=== PATIENT | male | born 1950 | race Caucasian/White ===

== ENCOUNTER 2021-04-26 08:00 | Outpatient (CLI) | payer BC | END 2021-04-26 23:59 | LOC: LAB.N 08:00 | PROVIDERS: ATTEND Nurse Practitioner | DX: R63.0 Anorexia (principal); Z20.822 Contact with and (suspected) exposure to COVID-19 ==

== ENCOUNTER 2024-11-24 13:47 | Inpatient (IN) ==
--- NOTE | 2024-11-24 14:16 | ED Physician Documentation ---
PD HPI CHEST PAIN Stated complaint Stated Complaint: SOA, COUGHING Chief complaint Chief Complaint: Resp History obtained from History obtained from: Patient Additional information Additional information: This is a very nice 74-year-old gentleman who presents with several months of shortness of breath and worsening over the last several nights. He is also noted 2 to 3 weeks of right lower leg swelling. He notes that his symptoms were possibly related to his COPD. Patient has a longstanding history of tobacco use, has been told he has COPD in the past but is not on any sort of inhaler. He has noted a productive cough recently, no fever or other URI symptoms. He does not believe he has been wheezing. He has noted increasing shortness of breath however particularly at nighttime, states he has not been able to sleep because he cannot lay flat due to significant shortness of breath. States repeatedly that he felt like he might last night if he fell asleep. He does not have any chest pain. He states he is generally quite active, works out in the yard, states he always is aching because he is doing fairly heavy physical labor around his property. Noted bilateral lower extremity swelling for the last several weeks but right leg has been substantially more swollen than left. He denies any pain to the right leg, has not noticed any erythema. No history of cellulitis. He apparently called or spoke with his PCP and they told him to come into the ER.. [place] Coma Scale Assess Eye opening: Spontaneous Verbal response: Oriented Motor response: Obeys Commands Total score: 15 Review of Systems Status of ROS: 10 or more systems reviewed and unremarkable except as noted in history and below Constitutional Denies: Fatigue, Fever, Chills, Malaise or Weakness Cardiovascular Reports: edema, swelling of feet/ankles, shortness of breath with exertion, shortness of breath when lying down and Decreased exercise tolerance; Denies: chest pain, palpitations, Syncope, lightheadedness, leg pain with exertion or bluish discoloration of hands/feet Respiratory Reports: Shortness of breath, Cough, Sputum production and SOB with exertion; Denies: Change in phlegm color, Wheezing, Pain on inspiration, Coughing up blood, Orthopnea or SOB at rest Gastrointestinal Denies: Abdominal pain, Abdominal distention, Nausea, Vomiting, Diarrhea or Constipation Integumentary/Breast Denies: Rash, Itching, Dryness, Redness, Skin pain or Skin tenderness Endocrine Denies: Fatigue Allergic/Immunologic Denies: Wheezing Meds/Allgy Allergies Allergies Allergy/AdvReac Type Severity Reaction Status Date / Time No Known Drug Allergies Allergy Verified 11/24/24 15:01 PFSH Active Problems All Active Problems (Updated 11/24/24 @ 16:48 by APURVA Rico) Atrial fibrillation (Acute) Chronic obstructive pulmonary disease with (acute) exacerbation (Acute) Acute CHF (Acute) Social History Social History (Updated 11/24/24 @ 20:46 by Juanjo Velasco DNP) Smoking Status: Current every day smoker Relationship: Do you feel safe in your home environment?: Yes Suffered physical, verbal, emotional, or financial abuse?: No Exam Exam Vital Signs: Vital Signs x48h Temp Pulse Resp BP Pulse Ox O2 Flow Rate 11/24/24 18:09 110 H 22 100/65 93 11/24/24 16:57 117 H 24 122/79 91 L 11/24/24 16:53 120 H 22 117/94 H 90 L 11/24/24 16:40 116 H 20 113/90 95 11/24/24 16:38 122 H 20 114/79 8 11/24/24 16:32 122 H 22 11/24/24 16:31 120 H 20 129/77 94 8 11/24/24 15:31 127 H 24 106/76 92 11/24/24 13:52 36.8 C 114 H 22 95/60 95 Constitutional normal general appearance, no apparent distress, no limitations and alert HENMT normocephalic, head/scalp atraumatic and oral mucous membranes normal Neck/C-Spine visual inspection normal and supple Chest inspection of chest normal and palpation of chest normal Respiratory Mildly tachypneic with talking in full sentences. Scattered expiratory wheezes, no crackles. No accessory muscle use. Cardiovascular heart rate abnormal, rhythm abnormal, no gallop, no murmur, no JVD and edema noted Irregular rhythm, tachycardic. Bilateral lower extremity edema right leg but substantially worse than left. Right leg 3+, left leg 1+ ankle edema. Wrist cap refill with palpable pedal pulses bilaterally, normal thermic Gastrointestinal abdomen normal to inspection, abdomen soft to palpation, nontender to palpation, nondistended and normoactive bowel sounds Extremities Right lower leg 3+ edema, no calf pain or fullness, no palpable cords, no cellulitis or bony injury. Neurology no sensory deficits noted, speech normal and GCS 15 Skin skin color normal, no rash, no lesions and no ecchymosis noted Results Vitals Vitals: Vital Signs - 24 hr 11/24/24 13:52 11/24/24 15:31 11/24/24 16:31 Temperature 36.8 C Temperature Source Oral Pulse Rate 114 H 127 H 120 H Respiratory Rate 22 24 20 Blood Pressure 95/60 106/76 129/77 O2 Saturation 95 92 94 O2 Source Room air Room air T-piece If not protocol: Oxygen Flow, liters/minute 8 Pain Intensity 0 11/24/24 16:32 11/24/24 16:38 11/24/24 16:40 Temperature Temperature Source Pulse Rate 122 H 122 H 116 H Respiratory Rate 22 20 20 Blood Pressure 114/79 113/90 O2 Saturation 95 O2 Source Room air T-piece Room air If not protocol: Oxygen Flow, liters/minute 8 Pain Intensity 11/24/24 16:53 11/24/24 16:57 11/24/24 18:09 Temperature Temperature Source Pulse Rate 120 H 117 H 110 H Respiratory Rate 22 24 22 Blood Pressure 117/94 H 122/79 100/65 O2 Saturation 90 L 91 L 93 O2 Source Room air Room air Room air If not protocol: Oxygen Flow, liters/minute Pain Intensity Oxygen O2 Source Room air EKG (time done) 1420: EKG releavant findings:: EKG personally interpreted by author of this note. Relevant findings are: Rate: Rate (enter#) (111) and Tachy Rhythm: Sinus tachycardia Intervals: Normal NC Ischemia: Non specific changes Computer interpretation: Agree with computer Labs Labs: Laboratory Tests 11/24/24 11/24/24 14:21 16:21 WBC 9.3 RBC 4.57 L Hgb 14.9 Hct 44.3 MCV 96.9 H MCH 32.6 H MCHC 33.6 RDW 13.2 Plt Count 146 MPV 11.5 H Neut # (Auto) 7.5 H Lymph # (Auto) 0.6 L [place] # (Auto) 1.1 H Eos # (Auto) 0.0 Baso # (Auto) 0.0 Absolute Nucleated RBC 0.00 Nucleated RBC % 0.0 PT 12.9 H INR 1.1 APTT 27.1 D-Dimer 442.5 H Sodium 137 Potassium 2.8 L Chloride 97 L Carbon Dioxide 32 Anion Gap 8.0 BUN 22 H Creatinine 1.1 Estimated GFR (MDRD) 65 L Glucose 116 H Calcium 8.8 Magnesium 1.7 Total Bilirubin 0.9 AST 43 H ALT 56 Alkaline Phosphatase 44 Troponin I High Sens 34.5 H* 35.0 H* B-Natriuretic Peptide 1208 H Total Protein 5.9 L Albumin 3.8 Globulin 2.1 Albumin/Globulin Ratio 1.8 Lipase 116 H PD Medical Decision Making ED course Complexity details: reviewed results, re-evaluated patient, considered differential and d/w patient ED course: This is a very nice 74-year-old male who presents with increasing shortness of breath and lower extremity edema for the last several weeks as described in HPI. He is a stable appearing here and physical exam so tachycardic, he appears nontoxic, oxygenating well on room air. There is concern for possible CHF, COPD exacerbation, ACS, pulmonary embolus, DVT, among other differentials considered. We obtained labs which are notable for a stable CBC no leukocytosis, elevated D-dimer at 442, chemistry notable for potassium of 2.8, chlorides 97, BUN 22 creatinine 1.1, high-sensitivity troponin is 34.5, repeat troponin 35, BNP elevated at 1208, magnesium 1.7. EKG shows sinus tachycardia with VPCs, no acute ST changes. CTA negative for PE, venous duplex of the right lower leg negative for DVT but concern for possible arterial disease. The patient was given diltiazem 10 mg IV for pain tachycardia in and out of atrial fibrillation on the monitor. He was rate improved into the low 100s, blood pressure somewhat soft but stable. Patient was given a DuoNeb as well as 40 mg of IV Lasix. I discussed with the ED attending and hospitalization recommended given patient's persistent tachycardia, need for diuresis, hypokalemia, and likely new atrial fibrillation though in en route. I have therefore spoken with the hospitalist CULLET CRUSHER who very kindly agrees to admit this patient. Discharge Plan Discharge Patient Disposition: [facility] DC/Xfer Condition: Good Clinical Impression: Chronic obstructive pulmonary disease with (acute) exacerbation Acute CHF Qualifiers: Heart failure type: unspecified Qualified Code(s): I50.9 - Heart failure, unspecified Atrial fibrillation Qualifiers: Atrial fibrillation type: unspecified Qualified Code(s): I48.91 - Unspecified atrial fibrillation Interventions: ED Admission Assessment Last Done: 11/24/24 19:11
[2024-11-24] MEDS ORDERED: iohexoL-300 100 ML VIAL ONE (14:21)
[2024-11-24 14:31] LABS: BASOPHILS % (AUTO) 0.3 %; HCT - HEMATOCRIT 44.3 % (42.0-52.0); HGB - HEMOGLOBIN 14.9 g/dL (14.0-18.0); LYMPHOCYTES # (AUTO) 0.6 10^3/uL (1.5-3.5); LYMPHOCYTES % (AUTO) 6.4 %; MEAN CORPUSCULAR HEMOGLOBIN 32.6 pg (27.0-31.0); MEAN CORPUSCULAR HGB CONC 33.6 g/dL (32.0-36.0); MEAN CORPUSCULAR VOLUME 96.9 fL (80.0-94.0); MEAN PLATELET VOLUME 11.5 fL (7.4-11.4); MONOCYTES # (AUTO) 1.1 10^3/uL (0.0-1.0); MONOCYTES % (AUTO) 12.2 %; NEUTROPHILS # (AUTO) 7.5 10^3/uL (1.5-6.6); NEUTROPHILS % (AUTO) 80.8 %; PLT - PLATELET COUNT 146 10^3/uL (130-450); RED BLOOD COUNT 4.57 10^6/uL (4.70-6.10); RED CELL DISTRIBUTION WIDTH 13.2 % (12.0-15.0); WHITE BLOOD COUNT 9.3 x10^3/uL (4.8-10.8)
[2024-11-24 14:44] LABS: INR 1.1 (0.8-1.2); PT - PROTHROMBIN TIME 12.9 secs (9.9-12.6)
[2024-11-24 14:47] LABS: ALBUMIN 3.8 g/dL (3.2-5.5); ALBUMIN/GLOBULIN RATIO 1.8 (1.0-2.2); BILIRUBIN,TOTAL 0.9 mg/dL (0.2-1.0); CALCIUM 8.8 mg/dL (8.5-10.3); CREATININE 1.1 mg/dL (0.6-1.3); POTASSIUM 2.8 mmol/L (3.5-4.5); TOTAL PROTEIN 5.9 g/dL (6.4-8.9)
[2024-11-24 14:51] LABS: PARTIAL THROMBOPLASTIN TIME 27.1 secs (24.9-33.3)
[2024-11-24 14:58] LABS: D-DIMER 442.5 ng/mL (200.0-255.0)
[2024-11-24] MEDS: POTASSIUM CHLOR 10 MEQ/100 ML 10 MEQ/100 ML BAG IV STA (15:10)
[2024-11-24] MEDS: POTASSIUM CHLORIDE 20 MEQ/15 ML UDC PO STA (15:10)
[2024-11-24] MEDS: SODIUM CHLORIDE 0.9% 500 ML IV PRN (15:17)
[2024-11-24] MEDS: iohexoL-300 100 ML VIAL IVP ONE (16:20)
--- NOTE | 2024-11-24 16:20 | Ultrasound Report ---
PROCEDURE: US Venous Duplex RT INDICATIONS: unilateral swelling, concern for DVT TECHNIQUE: Real-time imaging, as well as color and pulse Doppler interrogation, were performed of the lower extremity deep veins from the inguinal ligament to the popliteal fossa. Attempted visualization of the calf veins was performed. COMPARISON: None. FINDINGS: The deep veins are normally compressible, and free of intraluminal thrombus. Color and pulse Doppler demonstrate normal phasic intraluminal flow. There is normal augmentation response to distal compression maneuver. Study is limited by the patient's inability to remain still for this study. Calcified shadowing arterial plaque can be seen. Monophasic flow with decreased peak systolic velocity of 29.5 cm/s can be seen within the superficial femoral artery. IMPRESSION: No deep venous thrombosis of the visualized lower extremity. Incidental note is made of adjacent arterial disease. Please consider a follow- up arterial ultrasound for further evaluation. Note: Concordant preliminary findings given by the law firm receptionist upon the completion of the examination to Brunilda all. Reviewed by: Jonathon Nascimento MD on 11/24/2024 3:19 PM MIKY Approved by: Jonathon Nascimento MD on 11/24/2024 3:19 PM MIKY Station ID: [id number]
[2024-11-24] MEDS: FUROSEMIDE 40 MG/4 ML VIAL IVP STA (16:25)
--- NOTE | 2024-11-24 16:27 | CT Report ---
PROCEDURE: CT Angio Chest INDICATIONS: concern for PE, tachy/SOB, right leg swelling. CONTRAST: Omni 300 80ml TECHNIQUE: After the administration of intravenous contrast, 2 mm axial images were acquired from the pulmonary apices to the posterior costophrenic angles during the arterial phase. In addition, 1 mm lung kernel and 5 mm soft tissue kernel reconstructions were performed. 3-dimensional coronal oblique maximum intensity projection (MIP) reformats, 8 mm axial MIP, and 5 mm coronal and sagittal MPR reformats were then performed through the thorax. For radiation dose reduction, the following was used: automated exposure control, adjustment of mA and/or kV according to patient size. COMPARISON: None. FINDINGS: Image quality: Excellent. Large vessels: No filling defects within the opacified pulmonary arteries, accounting for motion and contrast timing. No evidence of acute aortic syndrome or aortic aneurysm. Lungs and pleura: There is a small right-sided pleural effusion, with overlying apparent atelectasis. No consolidation. No pneumothorax. No suspicious pulmonary nodules which require follow up. Mediastinum: Moderate to prominent coronary calcification is seen. Heart size is normal. No pericardial effusion. No large vessel abnormality. Atherosclerotic calcification is seen. No mediastinal adenopathy by size criteria. Chest wall and lower neck: Thyroid is unremarkable. No axillary or supraclavicular adenopathy by size. Bones: No aggressive osseous abnormality. Upper Abdomen: Unremarkable. IMPRESSION: No pulmonary embolus. There is a small right-sided pleural effusion, with overlying atelectasis. Additional findings: Moderate prominent coronary consultation Reviewed by: Jonathon Nascimento MD on 11/24/2024 3:26 PM AKDT Approved by: Jonathon Nascimento MD on 11/24/2024 3:26 PM AKDT Station ID: [id number]
[2024-11-24] MEDS: IPRATROPIUM/ALBUTEROL 3 ML NEB INH STA (16:32)
[2024-11-24] MEDS: diltiaZEM INJ 5 MG/ML VIAL IVP STA (16:34)
[2024-11-24] MEDS ORDERED: METOPROLOL 5 MG/5 ML VIAL IVP PRN (17:46)
--- NOTE | 2024-11-24 18:40 | HISTORY & PHYSICAL EXAMINATION ---
Chief Complaint Chief Complaint Chief Complaint: Dyspnea History of Present Illness Admitted From Admitted From:: Home History Obtained From History obtained from: Patient interview Exam Limitations: None History of Present Illness HPI Comment/Other: 74-year-old male PMH tobacco abuse, COPD with family history of CHF presented to the ED with dyspnea that has been worsening over the past 2 months, acutely worsening over the past few days. Denies fever, chills, chest pain, bowel/bladder abnormality. Reports swelling in his legs. Reports wheezing In the ER, CTA chest was performed which was negative for PE but did show small right-sided pleural effusion and moderate to prominent coronary calcification. Venous ultrasound was performed which was negative for clot. Troponin was 34.5 on initial presentation, and repeat was 35. He was given Solu-Medrol, 40 mg IV Lasix, and hospitalist was consulted for observation for acute heart failure Meds/Allgy Allergies Allergies Allergy/AdvReac Type Severity Reaction Status Date / Time No Known Drug Allergies Allergy Verified 11/24/24 15:01 [facility] Active Problems All Active Problems (Updated 11/24/24 @ 16:48 by Ibeth Worley VICE CHAIR) Atrial fibrillation (Acute) Chronic obstructive pulmonary disease with (acute) exacerbation (Acute) Acute CHF (Acute) Social History Social History Smoking Status: Current every day smoker Relationship: Do you feel safe in your home environment?: Yes Suffered physical, verbal, emotional, or financial abuse?: No Review of Systems Status of ROS: 10 or more systems reviewed and unremarkable except as noted in history and below Constitutional Denies: Fever or Chills Cardiovascular Reports: shortness of breath with exertion; Denies: Irregular heart rate, chest pain or palpitations Respiratory Reports: Shortness of breath, Cough and Wheezing Gastrointestinal Denies: Abdominal pain or Abdominal distention Musculoskeletal Reports: Back pain (Chronic) Allergic/Immunologic Reports: Wheezing Exam Exam Vital Signs: Vital Signs x48h Temp Pulse Pulse Resp BP BP Pulse Ox 11/24/24 20:21 119 H 86/55 L 11/24/24 20:05 36.5 C 115 H 24 88/59 L 94 11/24/24 19:10 115 H 24 104/62 91 L 11/24/24 18:48 128 H 24 96/67 90 L 11/24/24 18:38 129 H 22 103/77 90 L 11/24/24 18:09 110 H 22 100/65 93 05/11/25 16:57 117 H 24 122/79 91 L 11/24/24 16:53 120 H 22 117/94 H 90 L 11/24/24 16:40 116 H 20 113/90 95 11/24/24 16:38 122 H 20 114/79 11/24/24 16:32 122 H 22 11/24/24 16:31 120 H 20 129/77 94 11/24/24 15:31 127 H 24 106/76 92 11/24/24 13:52 36.8 C 114 H 22 95/60 95 O2 Flow Rate 11/24/24 20:21 11/24/24 20:05 11/24/24 19:10 11/24/24 18:48 11/24/24 18:38 11/24/24 18:09 11/24/24 16:57 11/24/24 16:53 11/24/24 16:40 11/24/24 16:38 8 11/24/24 16:32 11/24/24 16:31 8 11/24/24 15:31 11/24/24 13:52 Constitutional normal general appearance and no apparent distress HENMT normocephalic and head/scalp atraumatic Eyes PERRL Neck/C-Spine visual inspection normal Lymph no lymphadenopathy noted Chest inspection of chest normal Respiratory breath sounds equal bilaterally Coarse breath sounds Cardiovascular heart rate abnormal (tachycardic), peripheral pulses 2+ throughout and edema noted Gastrointestinal abdomen normal to inspection and abdomen soft to palpation Extremities BLE edema Neurology GCS 15 Psychiatry oriented x3 Skin skin color normal Conclusion/Plan Problem List (1) Acute CHF: Plan: 91% on room air, desaturates with activity He reports his father of heart failure Ordered echocardiogram 40 mg Lasix given by ER provider I&O, telemetry, daily weight 40 mg IV Lasix daily Albumin x 1 to support diuresis Qualifiers: Heart failure type: unspecified Qualified Code(s): I50.9 - Heart failure, unspecified (2) Chronic obstructive pulmonary disease with (acute) exacerbation: Plan: Contributing to his overall shortness of breath Active smoker, no plans to stop Received Solu-Medrol 125 mg in the ER Prednisone 40 mg p.o. daily Bronchodilator protocol (3) Atrial fibrillation: Plan: 10 mg diltiazem ordered by ER provider Metoprolol 25 mg p.o. twice daily Echo as above Telemetry as above Replete electrolytes. ER gave 50 mEq potassium. I have ordered another 40 mEq potassium and 2 g magnesium Qualifiers: Atrial fibrillation type: unspecified Qualified Code(s): I48.91 - Unspecified atrial fibrillation Plan Placed in observation DNR, intubation okay His daughter is his surrogate decision-maker Lab Results 11/24/24 14:21 11/24/24 14:21 Core Measures Anticipated LOS I expect patient to be DC'd or transferred within 96 hours.: Yes DVT/VTE - Prophylaxis VTE/DVT Prophylaxis med ordered at admit?: Yes
[2024-11-24] MEDS ORDERED: ACETAMINOPHEN 325 MG TABLET PO PRN (19:37)
[2024-11-24] MEDS ORDERED: ONDANSETRON 4 MG/2 ML VIAL IVP PRN (19:37)
[2024-11-24] MEDS ORDERED: ONDANSETRON ODT 4 MG TABLET TL PRN (19:37)
[2024-11-24] MEDS: METOPROLOL TARTRATE 25 MG TABLET PO SCH (20:21)
[2024-11-24] MEDS: ALBUMIN 25% 12.5 GM/50 ML VIAL IV STA (20:56)
[2024-11-24] MEDS: POTASSIUM CHLORIDE 20 MEQ TABLET PO ONE (21:05)
[2024-11-24] MEDS: MAGNESIUM SULFATE 2 GRAM 2 GM/50 ML BAG IV ONE (21:10)
[2024-11-25] MEDS: SODIUM CHLORIDE FLUSH 0.9% 10 ML SYRINGE IVP SCH (02:16)
[2024-11-25] MEDS ORDERED: MIDODRINE 2.5 MG TABLET PO PRN (03:56)
[2024-11-25] MEDS: AMIODARONE 360 MG/200 ML 200 ML IV SCH (04:34)
[2024-11-25] MEDS: METOPROLOL 5 MG/5 ML VIAL IVP PRN (04:54)
[2024-11-25 05:35] LABS: BASOPHILS % (AUTO) 0.3 %; HCT - HEMATOCRIT 42.5 % (42.0-52.0); HGB - HEMOGLOBIN 14.3 g/dL (14.0-18.0); LYMPHOCYTES # (AUTO) 0.8 10^3/uL (1.5-3.5); LYMPHOCYTES % (AUTO) 8.5 %; MEAN CORPUSCULAR HEMOGLOBIN 32.4 pg (27.0-31.0); MEAN CORPUSCULAR HGB CONC 33.6 g/dL (32.0-36.0); MEAN CORPUSCULAR VOLUME 96.4 fL (80.0-94.0); MEAN PLATELET VOLUME 11.4 fL (7.4-11.4); MONOCYTES # (AUTO) 1.1 10^3/uL (0.0-1.0); MONOCYTES % (AUTO) 11.2 %; NEUTROPHILS # (AUTO) 7.7 10^3/uL (1.5-6.6); NEUTROPHILS % (AUTO) 79.5 %; PLT - PLATELET COUNT 133 10^3/uL (130-450); RED BLOOD COUNT 4.41 10^6/uL (4.70-6.10); RED CELL DISTRIBUTION WIDTH 13.2 % (12.0-15.0); WHITE BLOOD COUNT 9.7 x10^3/uL (4.8-10.8)
[2024-11-25 05:46] LABS: CALCIUM 8.6 mg/dL (8.5-10.3); POTASSIUM 3.3 mmol/L (3.5-4.5)
[2024-11-25] MEDS: ENOXAPARIN 40 MG/0.4 ML SYRINGE SUBQ SCH (08:38)
[2024-11-25] MEDS: FUROSEMIDE 40 MG/4 ML VIAL IVP SCH (08:38)
--- NOTE | 2024-11-25 11:15 | PHARMACY PROGRESS NOTE ---
Best Possible Medication History Admit Date and Time: 11/24/24 1830 Home Medications Medication Instructions Recorded Confirmed Type atorvastatin 20 mg tablet 10 mg PO DAILY 11/25/2411/14 History cholecalciferol (vitamin D3) 25 5,000 unit PO UD 11/2511/25/24 History mcg (1,000 unit) tablet (Vitamin D3) cyanocobalamin (vitamin B-12) 500 500 mcg PO DAILY 07/1011/25/24 History mcg tablet hydrochlorothiazide 50 mg tablet 25 mg PO DAILY 11/25/24 History Processed by: Pharmacy Medications reviewed in ED?: No Medication History completed: Yes Patient Interview: Completed Secondary Source(s): Insurance records [facility] Statement: Per [facility] interview with patient and review of [employer] insurance records. As the person ultimately responsible for medication therapy, providers are able to order a medication from an existing home medication list in [facility] via the "Reconcile Routine" prior to Confirmation of that medication by sales support representative. Such practice is discouraged except when the physician, in their clinical judgment, deems that a medical need exists for a medication without regard to previous use.
--- NOTE | 2024-11-25 14:30 | PROVIDER PROGRESS NOTE ---
Subjective Prog Note Date Prog Note Date: 11/25/24 Subjective Pt reports feeling: Improved Current Medications Current Medications Current Medications: Current Medications Generic Name Dose Route Start Last Admin Trade Name Freq PRN Reason Stop Dose Admin Acetaminophen 650 mg 11/24/24 19:37 Acetaminophen 325 Mg Tablet PO Q4HR PRN Pain 1 to 4, or Fever Enoxaparin Sodium 40 mg 11/25/24 09:00 11/25/24 08:38 Enoxaparin 40 Mg/0.4 Ml Syringe SUBQ 40 mg DAILY LEATHA Administration Furosemide 40 mg 11/25/24 09:00 11/25/24 08:38 Furosemide 40 Mg/4 Ml Vial IVP 40 mg DAILY LEATHA Administration Sodium Chloride 500 mls @ 10 mls/hr 11/24/24 15:02 11/24/24 20:41 Normal Saline 0.9% IV 0 mls/hr Q24H PRN Infusion TKO RATE Metoprolol Tartrate 5 mg 11/24/24 17:46 Metoprolol 5 Mg/5 Ml Vial IVP Q5M PRN Tachycardia Metoprolol Tartrate 25 mg 11/24/24 19:37 11/25/24 08:39 Metoprolol Tartrate 25 Mg Tablet PO 25 mg BID LEATHA Administration Metoprolol Tartrate 5 mg 11/25/24 04:12 11/25/24 04:54 Metoprolol 5 Mg/5 Ml Vial IVP 5 mg Q6H PRN Administration Tachycardia Midodrine 5 mg 11/25/24 03:56 Midodrine 2.5 Mg Tablet PO 11/26/24 03:55 ONCE PRN SBP<90 Multivitamins/Minerals 1 tab 11/26/24 08:00 Multivitamin W/Minerals Tablet PO DAILYWM LEATHA Ondansetron HCl 4 mg 11/24/24 19:37 Ondansetron Odt 4 Mg Tablet TL Q6HR PRN Nausea / Vomiting Ondansetron HCl 4 mg 11/24/24 19:37 Ondansetron 4 Mg/2 Ml Vial IVP Q6HR PRN Nausea / Vomiting Sodium Chloride 10 ml 11/24/24 19:37 Sodium Chloride Flush 0.9% 10 Ml Syringe IVP PRN PRN NEEDED PER PROVIDER ORDERS Sodium Chloride 10 ml 11/25/24 01:00 11/25/24 08:39 Sodium Chloride Flush 0.9% 10 Ml Syringe IVP 10 ml 0100,0900,1700 LEATHA Administration Objective Vital Signs/Intake & Output Reviewed Vital Signs: Yes Vital Signs: Vital Signs x48h Temp Pulse Pulse Resp BP BP Pulse Ox 11/25/24 12:11 36.4 C L 89 20 101/67 96 11/25/24 08:39 117 H 99/62 11/25/24 08:23 36.3 C L 75 20 99/65 90 L Intake & Output: Intake & Output 11/22/24 11/23/24 11/24/24 11/25/24 23:59 23:59 23:59 23:59 Intake Total 254 / 254 380 / 380 Output Total 500 / 500 580 / 580 Balance -246 / -246 -200 / -200 Weight (kg) 75 kg Objective General Appearance: positive No acute distress and Alert Eyes Bilateral: positive Normal inspection ENT: positive ENT inspection nml Neck: positive Nml inspection Respiratory: positive Chest non-tender Cardiovascular: positive Irregularly irregular Abdomen: positive Non-tender Skin: positive Color nml Extremities: positive Non-tender and Pedal edema Neurologic/Psychiatric: positive Oriented x3 Lab Results 11/25/24 05:14 11/25/24 05:14 Other Labs: Lab Results x24hrs 11/25/24 11/24/24 11/24/24 Range/Units 05:14 16:21 14:21 WBC 9.7 9.3 (4.8-10.8) x10^3/uL RBC 4.41 L 4.57 L (4.70-6.10) 10^6/uL Hgb 14.3 14.9 (14.0-18.0) g/dL Hct 42.5 44.3 (42.0-52.0) % MCV 96.4 H 96.9 H (80.0-94.0) fL MCH 32.4 H 32.6 H (27.0-31.0) pg MCHC 33.6 33.6 (32.0-36.0) g/dL RDW 13.2 13.2 (12.0-15.0) % Plt Count 133 146 (130-450) 10^3/uL MPV 11.4 11.5 H (7.4-11.4) fL Neut # (Auto) 7.7 H 7.5 H (1.5-6.6) 10^3/uL Lymph # (Auto) 0.8 L 0.6 L (1.5-3.5) 10^3/uL [place] # (Auto) 1.1 H 1.1 H (0.0-1.0) 10^3/uL Eos # (Auto) 0.0 0.0 (0.0-0.7) 10^3/uL Baso # (Auto) 0.0 0.0 (0.0-0.1) 10^3/uL Absolute Nucleated RBC 0.00 0.00 x10^3/uL Nucleated RBC % 0.0 0.0 /100WBC PT 12.9 H (9.9-12.6) secs INR 1.1 (0.8-1.2) APTT 27.1 (24.9-33.3) secs D-Dimer 442.5 H (200.0-255.0) ng/mL Sodium 137 137 (135-145) mmol/L Potassium 3.3 L 2.8 L (3.5-4.5) mmol/L Chloride 99 L 97 L (101-111) mmol/L Carbon Dioxide 29 32 (21-32) mmol/L Anion Gap 9.0 8.0 (6-13) BUN 23 H 22 H (6-20) mg/dL Creatinine 1.0 1.1 (0.6-1.3) mg/dL Estimated GFR (MDRD) 73 L 65 L (>89) Glucose 122 H 116 H (74-104) mg/dL Calcium 8.6 8.8 (8.5-10.3) mg/dL Magnesium 1.7 (1.7-2.3) mg/dL Total Bilirubin 0.9 (0.2-1.0) mg/dL AST 43 H (10-42) IU/L ALT 56 (10-60) IU/L Alkaline Phosphatase 44 (42-121) IU/L Troponin I High Sens 35.0 H* 34.5 H* (2.3-19.7) ng/L B-Natriuretic Peptide 1208 H (5-100) pg/mL Total Protein 5.9 L (6.4-8.9) g/dL Albumin 3.8 (3.2-5.5) g/dL Globulin 2.1 (2.1-4.2) g/dL Albumin/Globulin Ratio 1.8 (1.0-2.2) Lipase 116 H (11-82) U/L Assessment/Plan Problem List (1) Acute CHF: Impression: Stable on room air Family history of heart failure Echocardiogram ordered I am continuing 40 mg IV Lasix daily, and supporting electrolytes TEJAS, telemetry, daily weights Qualifiers: Heart failure type: unspecified Qualified Code(s): I50.9 - Heart failure, unspecified (2) Chronic obstructive pulmonary disease with (acute) exacerbation: Impression: Presumptive COPD, could be contributing Continue prednisone 40 mg p.o. daily (3) Atrial fibrillation: Impression: Echo as above I am continuing his metoprolol 25 mg p.o. twice daily His heart rate is better controlled today. It is 89 at noon Qualifiers: Atrial fibrillation type: unspecified Qualified Code(s): I48.91 - Unspecified atrial fibrillation
[2024-11-25] MEDS: predniSONE 20 MG TABLET PO SCH (15:03)
[2024-11-25] MEDS: APIXABAN 5 MG TABLET PO SCH (20:38)
[2024-11-25] MEDS: MELATONIN 3 MG TABLET PO SCH (20:55)
[2024-11-26] MEDS: QUEtiapine 25 MG TABLET PO ONE (01:06)
[2024-11-26 01:41] LABS: BILIRUBIN,URINE SMALL (NEGATIVE); GLUCOSE, URINE (UA) NEGATIVE (NEGATIVE); KETONES,URINE (UA) NEGATIVE (NEGATIVE); LEUKOCYTE ESTERASE, URINE NEGATIVE (NEGATIVE); NITRITE,URINE NEGATIVE (NEGATIVE); OCCULT BLOOD,URINE SMALL (NEGATIVE); PH,URINE 5.5 PH (5.0-7.5); PROTEIN,URINE 100 mg/dL (NEGATIVE); UROBILINOGEN,URINE 1 (NORMAL) E.U./dL (NORMAL)
[2024-11-26 01:43] LABS: CLARITY,URINE HAZY (CLEAR)
[2024-11-26 01:58] LABS: AMORPHOUS SEDIMENT,UR Few /LPF; BACTERIA,URINE Few /HPF (None Seen); SQUAMOUS EPITHELIAL CELL,UR FEW Squamous (<= Few); WBC,URINE 0-3 /HPF (0-3)
[2024-11-26 01:59] LABS: CASTS, URINE 11-25 Hyaline Casts /LPF
[2024-11-26 05:48] LABS: BASOPHILS % (AUTO) 0.1 %; HCT - HEMATOCRIT 45.5 % (42.0-52.0); HGB - HEMOGLOBIN 15.2 g/dL (14.0-18.0); LYMPHOCYTES # (AUTO) 0.9 10^3/uL (1.5-3.5); LYMPHOCYTES % (AUTO) 12.2 %; MEAN CORPUSCULAR HGB CONC 33.4 g/dL (32.0-36.0); MEAN CORPUSCULAR VOLUME 98.9 fL (80.0-94.0); MEAN PLATELET VOLUME 11.7 fL (7.4-11.4); MONOCYTES # (AUTO) 0.9 10^3/uL (0.0-1.0); MONOCYTES % (AUTO) 11.2 %; NEUTROPHILS # (AUTO) 5.8 10^3/uL (1.5-6.6); PLT - PLATELET COUNT 117 10^3/uL (130-450); RED CELL DISTRIBUTION WIDTH 13.4 % (12.0-15.0); WHITE BLOOD COUNT 7.7 x10^3/uL (4.8-10.8)
[2024-11-26 06:00] LABS: CALCIUM 8.5 mg/dL (8.5-10.3); CREATININE 1.7 mg/dL (0.6-1.3)
[2024-11-26] MEDS ORDERED: TAMSULOSIN 0.4 MG CAPSULE PO SCH (09:00)
--- NOTE | 2024-11-26 09:11 | CT Report ---
PROCEDURE: CT Head WO INDICATIONS: Confusion TECHNIQUE: Noncontrast 4.5 mm thick angled axial sections acquired from the foramen magnum to the vertex. For radiation dose reduction, the following was used: automated exposure control, adjustment of mA and/or kV according to patient size. COMPARISON: None. FINDINGS: Image quality: Excellent. CSF spaces: Basal cisterns are patent. No extra-axial fluid collections. Ventricles are normal in size and shape. Brain: No midline shift. No intracranial mass effect or hemorrhage. Rojas- white matter interface is normal. Age-related global volume loss and chronic microvascular ischemic changes. Intracranial atherosclerotic vascular calcifications. Skull and face: Calvarium and visualized facial bones are intact, without suspicious lesions. Sinuses: Visualized sinuses and mastoids are clear. IMPRESSION: No acute intracranial pathology. Reviewed by: Daron Aceves MD on 11/26/2024 9:09 AM PDT Approved by: Daron Aceves MD on 11/26/2024 9:09 AM PDT Station ID: [id number]
[2024-11-26] MEDS: MULTIVITAMIN W/MINERALS TABLET PO SCH (09:27)
[2024-11-26] MEDS: ATORVASTATIN 10 MG TABLET PO SCH (09:27)
[2024-11-26] MEDS: TAMSULOSIN 0.4 MG CAPSULE PO SCH (09:27)
[2024-11-26] MEDS: hydroCHLOROthiazide 25 MG TABLET PO SCH (09:27)
[2024-11-26] MEDS: CYANOCOBALAMIN 500 MCG TABLET PO SCH (09:27)
[2024-11-26] MEDS: CHOLECALCIFEROL 25 MCG TABLET PO SCH (09:57)
[2024-11-26 12:13] VITALS: TEMP 97.7
--- NOTE | 2024-11-26 12:24 | ECHO Report ---
Version: 1 Study ID: [id number] [id number] Adult Echocardiogram Report Name: JOSE GUADALUPE VELÁSQUEZ Study Date: 11/25/2024, 4: 06 PM BP: 101 / 67 mmHg Patient Location: [facility] [place]^2206^01 HR: 98 bpm : 1950 (MM/DD/YYYY) Gender: Male Height: 68 in Age: 74 Years Weight: 165.347 lb Reason For Study: Eval CHF History: AFIB, COPD Procedure: A complete two-dimensional transthoracic echocardiogram was performed (2D, M- mode, Doppler and color flow Doppler). The patient was comfortable and cooperative throughout the procedure. The study was done with the patient in the supine position, due to inability to lie on the left side. Patient seemed to be confused during the exam and moderate coughing throughout exam. The underlying rhythm was atrial fibrillation. Interpretation Summary The left ventricle is mildly dilated. Global left ventricular systolic function is severely decreased at 18 %. The right ventricle is mildly to moderately dilated. The right ventricular systolic function is severely decreased. There is severe mitral regurgitation. Moderate tricuspid regurgitation present. Mild to moderate aortic regurgitation is present. Left Ventricle: The left ventricle is mildly dilated. No thrombus seen in the left ventricle. Global left ventricular systolic function is severely decreased. The calculated ejection fraction, as determined by the biplane method of disks, is 18%. There is severe global hypokinesis of the left ventricle. Right Ventricle: The right ventricle is mildly to moderately dilated. The right ventricular systolic function is severely decreased. Aortic Valve: Aortic valve sclerosis is present without stenosis. No hemodynamically significant valvular aortic stenosis. Mild to moderate aortic regurgitation is present. Mitral Valve: Mild mitral annular calcification is present. The mitral valve leaflets are moderately thickened. No evidence of mitral stenosis is seen. There is severe mitral regurgitation. Tricuspid Valve: The tricuspid valve leaflets are mildly thickened. There is no tricuspid stenosis. Moderate tricuspid regurgitation present. Pulmonic Valve: The pulmonic valve is thickened with good excursion. There is no pulmonic valvular stenosis. Mild pulmonic valvular regurgitation is present. Left Atrium: The left atrium is severely dilated. The left atrial volume indexed to body surface area is 65 ml/m2. This refers to the maximal volume measured prior to mitral valve opening. Right Atrium: The right atrium is severely dilated. The inferior vena cava is mildly dilated with mildly decreased collapse with sniff (estimated right atrial pressure 10-15mmHg). Atrial Septum: There is no Doppler evidence for an atrial septal defect. Aorta: The diameter of the ascending aorta is 3.6 cm. The aortic root measures 3.4 cm in diameter. Pulmonary Artery: The pulmonary artery is mildly dilated. The right ventricular systolic pressure is 43mmHg. Pericardium/Pleural Space: There is no pericardial effusion. A left pleural effusion is present. Doppler Measurements & Calculations Ao max P.2 mmHg Ao V2 max: 102.9 cm/sec LV V1 max: 90.6 cm/sec LV V1 max P.3 mmHg MR max P.5 mmHg MR max sobia: 385.5 cm/sec PA max P.33 mmHg PA V2 max: 57.8 cm/sec TR max P.2 mmHg TR max sobia: 265.3 cm/sec MMode/2D Measurements & Calculations Ao root diam: 3.4 cm EDV(MOD-sp4): 213.5 ml EF (est.): 14.9 % ESV(MOD-sp4): 106.8 ml Heart Rate: 98.0 BPM Height (metric): 172.7 cm IVSd: 0.73 cm LAV(MOD-bp): 121.5 ml LAV(MOD-bp) Indexed: 64.5 ml/m² LAV(MOD-sp2): 130.1 ml LAV(MOD-sp4): 110.5 ml LVIDd: 6.4 cm LVIDs: 6.0 cm LVLd ap4: 10.1 cm LVLs ap4: 9.4 cm LVPWd: 0.88 cm RA A4Cs: 27.3 cm² Systolic Pressure: 101.0 mmHg Other Measurements & Calculations Ao root diam: 3.4 cm Ao V2 max: 102.9 cm/sec BMI: 25.1 kilograms/m² BSA: 1.89 m² BSA(Haycock): 1.91 m² Diastolic Pressure: 67.0 mmHg EDV(MOD-sp4): 213.5 ml EDV(Teich): 210.2 ml EF (est.): 14.9 % EF(MOD-sp4): 50.0 % EF(Teich): 14.9 % ESV(MOD-sp4): 106.8 ml ESV(Teich): 178.8 ml FS: 6.8 % Heart Rate: 98.0 BPM Height (metric): 172.7 cm IVSd: 0.73 cm LAV(MOD-bp): 121.5 ml LAV(MOD-bp) Indexed: 64.5 ml/m² LAV(MOD-sp2): 130.1 ml LAV(MOD-sp4): 110.5 ml LV V1 max: 90.6 cm/sec LVIDd: 6.4 cm LVIDs: 6.0 cm LVLd ap4: 10.1 cm LVLs ap4: 9.4 cm LVPWd: 0.88 cm MR max P.5 mmHg MR max sobia: 385.5 cm/sec PA max P.33 mmHg PA V2 max: 57.8 cm/sec RA A4Cs: 27.3 cm² SV(MOD-sp4): 106.8 ml Systolic Pressure: 101.0 mmHg TR max P.2 mmHg TR max sobia: 265.3 cm/sec TV max P.2 mmHg Weight (metric): 75.0 kg EDV(MOD-sp2): 276.3 ml EF Mod BP: 17.7 % ESV(MOD-sp2): 148.1 ml EF(MOD-sp2): 46.4 % EF(sp-el): 33.2 % MD Dorothea Preston 11/26/2024, 12: 23 PM Ordering Physician: Juanjo Velasco Referring Physician: Ibeth Worley Performed By: Letitia Sorensen RDCS
--- NOTE | 2024-11-26 13:19 | PROVIDER PROGRESS NOTE ---
Subjective Prog Note Date Prog Note Date: 11/26/24 Subjective Pt reports feeling: No change Current Medications Current Medications Current Medications: Current Medications Generic Name Dose Route Start Last Admin Trade Name Madiq PRN Reason Stop Dose Admin Acetaminophen 650 mg 11/24/24 19:37 Acetaminophen 325 Mg Tablet PO Q4HR PRN Pain 1 to 4, or Fever Apixaban 5 mg 11/25/24 21:00 11/26/24 09:27 Apixaban 5 Mg Tablet PO 5 mg BID LEATHA Administration Atorvastatin Calcium 10 mg 11/26/24 09:00 11/26/24 09:27 Atorvastatin 10 Mg Tablet PO 10 mg DAILY LEATHA Administration Cholecalciferol 5,000 unit 11/27/24 09:00 Cholecalciferol 5,000 Unit Capsule PO MoWeFr [facility] Cyanocobalamin 500 mcg 11/26/24 09:00 11/26/24 09:27 Cyanocobalamin 500 Mcg Tablet PO 500 mcg DAILY LEATHA Administration Furosemide 20 mg 11/27/24 09:00 Furosemide 20 Mg Tablet PO DAILY LEATHA Hydrochlorothiazide 25 mg 11/26/24 09:00 11/26/24 09:27 Hydrochlorothiazide 25 Mg Tablet PO 25 mg DAILY LEATHA Administration Sodium Chloride 500 mls @ 10 mls/hr 11/24/24 15:02 11/25/24 21:55 Normal Saline 0.9% IV Infused Q24H PRN Infusion TKO RATE Melatonin 3 mg 11/25/24 21:00 11/25/24 20:55 Melatonin 3 Mg Tablet PO 3 mg QPM LEATHA Administration Metoprolol Tartrate 25 mg 11/24/24 19:37 11/26/24 09:34 Metoprolol Tartrate 25 Mg Tablet PO 25 mg BID LEATHA Administration Metoprolol Tartrate 5 mg 11/25/24 04:12 11/25/24 04:54 Metoprolol 5 Mg/5 Ml Vial IVP 5 mg Q6H PRN Administration Tachycardia Multivitamins/Minerals 1 tab 11/26/24 08:00 11/26/24 09:27 Multivitamin W/Minerals Tablet PO 1 tab DAILYWM LEATHA Administration Ondansetron HCl 4 mg 11/24/24 19:37 Ondansetron Odt 4 Mg Tablet TL Q6HR PRN Nausea / Vomiting Ondansetron HCl 4 mg 11/24/24 19:37 Ondansetron 4 Mg/2 Ml Vial IVP Q6HR PRN Nausea / Vomiting Prednisone 40 mg 11/25/24 15:00 11/26/24 09:27 Prednisone 20 Mg Tablet PO 11/28/24 14:59 40 mg DAILYWM LEATHA Administration Sodium Chloride 10 ml 11/24/24 19:37 Sodium Chloride Flush 0.9% 10 Ml Syringe IVP PRN PRN NEEDED PER PROVIDER ORDERS Sodium Chloride 10 ml 11/25/24 01:00 11/26/24 08:23 Sodium Chloride Flush 0.9% 10 Ml Syringe IVP 10 ml 0100,0900,1700 LEATHA Administration Tamsulosin HCl 0.4 mg 11/25/24 20:43 11/26/24 09:27 Tamsulosin 0.4 Mg Capsule PO 0.4 mg DAILY LEATHA Administration Thiamine HCl 100 mg 11/26/24 11:00 Thiamine 100 Mg Tablet PO DAILY [facility] Objective Vital Signs/Intake & Output Reviewed Vital Signs: Yes Vital Signs: Vital Signs x48h Temp Pulse Pulse Resp BP BP BP 11/26/24 12:20 100 20 95/59 L 11/26/24 12:15 70 88/59 L 11/26/24 12:08 74 80/54 L 11/26/24 12:06 36.5 C 77 22 84/59 L 11/26/24 09:34 109 H 106/69 11/26/24 07:30 36.7 C 99 20 106/69 Pulse Ox O2 Flow Rate 11/26/24 12:20 98 1 11/26/24 12:15 11/26/24 12:08 11/26/24 12:06 96 2 11/26/24 09:34 11/26/24 07:30 98 2 Intake & Output: Intake & Output 11/23/24 11/24/24 11/25/24 11/26/24 23:59 23:59 23:59 23:59 Intake Total 254 / 254 500 / 500 720 / 720 Output Total 500 / 500 680 / 680 290 / 290 Balance -246 / -246 -180 / -180 430 / 430 Weight (kg) 75 kg Objective General Appearance: positive No acute distress and Alert Eyes Bilateral: positive Normal inspection ENT: positive ENT inspection nml Neck: positive Nml inspection Respiratory: positive Chest non-tender Cardiovascular: positive Irregularly irregular Abdomen: positive Non-tender Skin: positive Color nml Extremities: positive Non-tender and Pedal edema (Improving) Neurologic/Psychiatric: positive Oriented x3 Lab Results 11/26/24 05:11 11/26/24 05:11 Other Labs: Lab Results x24hrs 11/26/24 11/26/24 Range/Units 05:11 01:30 WBC 7.7 (4.8-10.8) x10^3/uL RBC 4.60 L (4.70-6.10) 10^6/uL Hgb 15.2 (14.0-18.0) g/dL Hct 45.5 (42.0-52.0) % MCV 98.9 H (80.0-94.0) fL MCH 33.0 H (27.0-31.0) pg MCHC 33.4 (32.0-36.0) g/dL RDW 13.4 (12.0-15.0) % Plt Count 117 L (130-450) 10^3/uL MPV 11.7 H (7.4-11.4) fL Neut # (Auto) 5.8 (1.5-6.6) 10^3/uL Lymph # (Auto) 0.9 L (1.5-3.5) 10^3/uL Greer # (Auto) 0.9 (0.0-1.0) 10^3/uL Eos # (Auto) 0.0 (0.0-0.7) 10^3/uL Baso # (Auto) 0.0 (0.0-0.1) 10^3/uL Absolute Nucleated RBC 0.00 x10^3/uL Nucleated RBC % 0.0 /100WBC Sodium 137 (135-145) mmol/L Potassium 4.0 (3.5-4.5) mmol/L Chloride 98 L (101-111) mmol/L Carbon Dioxide 28 (21-32) mmol/L Anion Gap 11.0 (6-13) BUN 49 H (6-20) mg/dL Creatinine 1.7 H (0.6-1.3) mg/dL Estimated GFR (MDRD) 40 L (>89) Glucose 113 H (74-104) mg/dL Calcium 8.5 (8.5-10.3) mg/dL Urine Color YELLOW Urine Clarity HAZY (CLEAR) Urine pH 5.5 (5.0-7.5) PH Ur Specific [place] >=1.030 H (1.002-1.030) Urine Protein 100 H (NEGATIVE) mg/dL Urine Glucose (UA) NEGATIVE (NEGATIVE) mg/dL Urine Ketones NEGATIVE (NEGATIVE) mg/dL Urine Occult Blood SMALL H (NEGATIVE) Urine Nitrite NEGATIVE (NEGATIVE) Urine Bilirubin SMALL H (NEGATIVE) Urine Urobilinogen 1 (NORMAL) (NORMAL) E.U./dL Ur Leukocyte Esterase NEGATIVE (NEGATIVE) Urine RBC 6-10 H (0-5) /HPF Urine WBC 0-3 (0-3) /HPF Ur Squamous Epith Cells FEW Squamous (<= Few) Amorphous Sediment Few /LPF Urine Bacteria Few (None Seen) /HPF Urine Casts 11-25 Hyaline Casts /LPF Ur Microscopic Review INDICATED Urine Culture Comments NOT INDICATED Assessment/Plan Problem List (1) Acute CHF: Impression: Stable on room air Family history of heart failure Echocardiogram ordered I am continuing 40 mg IV Lasix daily, and supporting electrolytes TEJAS, telemetry, daily weights 11/26/2024: Echocardiogram results show an EF 18% with severe mitral regurgitation, moderate tricuspid regurgitation, mild to moderate aortic regurgitation. His creatinine has increased markedly, so I am decreasing to oral Lasix starting tomorrow. Will start GDMT as tolerated by blood pressure. Already on metoprolol for rate control of his atrial fibrillation. Plan for goals of care discussion later today Qualifiers: Heart failure type: unspecified Qualified Code(s): I50.9 - Heart failure, unspecified (2) Chronic obstructive pulmonary disease with (acute) exacerbation: Impression: Presumptive COPD, could be contributing Continue prednisone 40 mg p.o. daily 11/26/2024: Continuing prednisone burst (3) Atrial fibrillation: Impression: Echo as above I am continuing his metoprolol 25 mg p.o. twice daily His heart rate is better controlled today. It is 89 at noon 11/26/2024: Continue metoprolol, started Eliquis 5 mg p.o. twice daily Qualifiers: Atrial fibrillation type: unspecified Qualified Code(s): I48.91 - Unspecified atrial fibrillation
[2024-11-26 13:31] LABS: VBG PH 7.347 (7.31-7.41)
[2024-11-26 13:32] LABS: VBG BASE EXCESS 2.4 mmol/L (-2 - +2); VBG PO2 104.6 mmHg (25-47); VBG TOTAL CO2 29.8 mmol/L (24-29)
--- NOTE | 2024-11-26 13:45 | PT Plan of Care ---
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 Admitted with CHF exacerbation and Afib. Now on 1L O2 and presenting with moderate confusion and inability to follow complex cueing . Pt's baseline mobility unclear d/t current confusion but per pt's friend who is visiting in room he is indep at baseline. Upon PT eval, pt supine on 1L, SpO2 98%, HR 100, BP 95/59. Requires modAx2 for transfer to EOB, seated BP 80/55, HR 67, and SpO2 97%. Pt unable to answer orientation questions, presenting A&Ox1 to self only. Given confusion and hypotension, hold out of bed mobility assessment at this time. Pt will benefit from skilled PT in acute setting to improve safety and aim to restore PLOF. When medically clear, PT rec dc to SNF as pt is unable to safely mobilize in home setting. Goals Improve bed mobility to: Modified Independent Improve supine to sit to: Modified Independent Improve sit to stand to: Contact Guard Improve pivot transfer ability Contact Guard to: Improve sit to supine to: Modified Independent Improve gait ability to: Min A Assistive Device Used: Front Wheeled Walker Improve Sitting Balance to: Good Improve Standing Balance to: Good PT Plan of Care Frequency 1-2x/day Duration Until goals are met Discharge Recommendations Discharge Location Assisted Facility DC Equipment Recommended Front wheeled walker Transport Needs at Discharge B.[facility] Other BLS d/t confusion, hypotension, unable to sit unsupported
--- NOTE | 2024-11-26 13:50 | OT Plan of Care ---
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 In the ER, CTA chest was performed which was negative for PE but did show small right-sided pleural effusion and moderate to prominent coronary calcification. Adm for CHF management requiring 1L NC O2. A&O to self only Place and time with choices. Follows 75% 1 step simple commands, distractible and hyperverbal requiring attention to task. MOD Ax2 supine to sit EOB BP 80/55- Spo2 97, HR 67. Denied dizziness. Placed supine back to bed. Currently MAX A ADLs. Overall presents with decreased endurance, activity tolerance and ADL status. Will benefit from cont OT services during acute stay. Rec d/c to SNF at this time. Goals - Activities of Daily Living Improve Upper Extremity Modified Independent Dressing to: Improve Lower Extremity Modified Independent Dressing to: Improve Grooming/Hygiene to: Modified Independent Improve Bathing to: Modified Independent Improve Toileting to: Modified Independent Plan Treatment Frequency 1x/day Duration Until discharge -Discharge Recommendations Discharge Location [facility] Transport Needs at Discharge [facility]
[2024-11-26] MEDS: THIAMINE 100 MG TABLET PO SCH (14:23)
[2024-11-26] MEDS: ALBUMIN 25% 12.5 GM/50 ML VIAL IV STA (16:23)
[2024-11-26 16:33] LABS: ABG BASE EXCESS 3.8 mmol/L (-2.0-3.0); ABG OXYGEN SATURATION 97 % (95-98); ABG PH 7.27 (7.35-7.45); ABG PO2 100 mmHg (83-108); ALLEN TEST POSITIVE
[2024-11-26 16:35] LABS: ABG PCO2 67 mmHg (34-45)
[2024-11-26] MEDS ORDERED: MORPHINE 2 MG/ML CARPUJECT IVP PRN (17:17)
[2024-11-26] MEDS: HYDROmorphone 0.5 MG/0.5 ML SYRINGE IVP PRN (17:25)
[2024-11-26] MEDS: LORazepam 2 MG/ML VIAL IVP PRN (17:28)
[2024-11-26] MEDS: NOREPINEPHRINE/0.9 % NS 8 MG/250 ML BAG IV SCH (17:30)
[2024-11-26] MEDS: methylPREDNISolone SUCCINATE 40 MG/ML VIAL IVP SCH (17:48)
[2024-11-26] MEDS: IPRATROPIUM/ALBUTEROL 3 ML NEB INH STA (17:59)
[2024-11-26] MEDS ORDERED: HALOPERIDOL 5 MG/ML VIAL IVP PRN (18:06)
[2024-11-26] MEDS ORDERED: ATROPINE 1% OPHTH DROPS 2 ML SL PRN (18:06)
[2024-11-26] MEDS ORDERED: GLYCOPYRROLATE 1 MG/5 ML VIAL SUBQ PRN (18:06)
[2024-11-26] MEDS: IPRATROPIUM/ALBUTEROL 3 ML NEB INH SCH (18:25)
--- NOTE | 2024-11-26 18:35 | ADVANCE CARE PLANNING NOTE ---
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 Lives with his daughter on the couch. Daughter at bedside reports that the daughter he lives with abuses drugs and that is not a good home situation. Objective/Medical Story: This gentleman was in a normal state of health until a week ago, when his n eighbors noticed he was starting to act differently. He developed swelling in his legs and worsening shortness of breath, for which he presented to the ER. He was admitted for heart failure workup, and echocardiogram revealed EF of 18%. Today, when I went into the patient's room to discuss test results, his mentation was worsened and he was having shallow respirations. I requested a meeting with the patient's daughter who has been making decisions for him and informed her of his poor heart function, likelihood for sudden cardiac , poor overall prognosis Goals of Care: The daughter states that at multiple times the patient has expressed the sentiment that he would not want his life artificially prolonged. This correlates with the outcome from the code discussion that I had with him on admission. The daughter is afraid of him dying in the hospital alone, and would prefer that he at home. She also recognizes that there are not sufficient resources at home and that he would be dying on the couch that he has been sleeping on Plan: Patient has made comfort care, hospice was consulted for informational visit. The decision was made for him to stay in the hospital as he is imminently dying now that he is no longer receiving aggressive medical treatment Code Status: Do Not Attempt Resuscitation Time spent on advance care plannin
[2024-11-26] MEDS: SCOPOLAMINE PATCH TOP SCH (19:03)
[2024-11-26 21:02] VITALS: BP 71/43; O2SAT 73
[2024-11-26] MEDS ORDERED: IPRATROPIUM/ALBUTEROL 3 ML NEB INH PRN (21:06)
[2024-11-27] MEDS: SODIUM CHLORIDE FLUSH 0.9% 10 ML SYRINGE IVP PRN (00:30)
--- NOTE | 2024-11-27 00:58 | PROVIDER PROGRESS NOTE ---
Maitre D Note Maitre D Note Maitre D Note: Notified by nurse that patient at 1248am.
[2024-11-27] MEDS ORDERED: CHOLECALCIFEROL 5,000 UNIT CAPSULE PO SCH (09:00)
[2024-11-27] MEDS ORDERED: FUROSEMIDE 20 MG TABLET PO SCH (09:00)
--- NOTE | 2024-11-27 20:39 | Discharge Summary ---
"Discharge Summary Admit Date: 11/24/24 Discharge Date: 11/27/24 Discharging Provider: Joi Anderson PA-C Primary Care Provider: Tre DIAGNOSES Discharge Diagnoses with Status of Each Condition: end-stage CHF COPD Atrial fibrillation Tobacco use, current everyday smoker HPI History of Present Illness: 74-year-old male H tobacco abuse, COPD with family history of CHF presented to the ED with dyspnea that has been worsening over the past 2 months, acutely worsening over the past few days. Denies fever, chills, chest pain, bowel/bladder abnormality. Reports swelling in his legs. Reports wheezing In the ER, CTA chest was performed which was negative for PE but did show small right-sided pleural effusion and moderate to prominent coronary calcification. Venous ultrasound was performed which was negative for clot. Troponin was 34.5 on initial presentation, and repeat was 35. He was given Solu-Medrol, 40 mg IV Lasix, and hospitalist was consulted for observation for acute heart failure CONSULTS | PROCEDURES Procedures: Lower extremity venous duplex, bilaterally: No DVT, incidental adjacent arterial disease noted CTA of the chest: No PE small right sided pleural effusion with overlying atelectasis Head CT: No intracranial pathology HOSPITAL COURSE Hospital Course: 74-year-old male who was admitted with acute CHF exacerbation. Diuresed with Lasix. His atrial fibrillation was treated with Eliquis and metoprolol. His heart rate was adequately controlled. Longtime tobacco smoker with presumptive COPD. Was also treated with prednisone for a possible exacerbation. Patient had an echocardiogram performed which was significant for severely decreased left ventricular systolic function, 18%., With global hypokinesis of the left ventricle. Severely decreased right ventricular systolic function. Despite diuresis the patient had decreasing mental status and worsening respiratory failure. Advanced care planning discussion was undertaken with his family and decision was made to transition him to comfort care. He peacefully approximately 6 hours after the decision to transition to comfort care with nd. ALLERGIES Allergies Allergy/AdvReac Type Severity Reaction Status Date / Time No Known Drug Allergies Allergy Verified 11/24/24 15:01 MEDICATIONS Ambulatory Orders Medication Instructions Recorded Confirmed atorvastatin 20 mg tablet 10 mg PO DAILY 11/25/24 05 2/25 cholecalciferol (vitamin D3) 25 5,000 unit PO UD 11/2511/25/24 mcg (1,000 unit) tablet (Vitamin D3) cyanocobalamin (vitamin B-12) 500 500 mcg PO DAILY 07/1011/25/24 mcg tablet hydrochlorothiazide 50 mg tablet 25 mg PO DAILY 11/25/24 PHYSICAL EXAM AT DISCHARGE Physical Exam Other/Comments: Patient without heart rate or respirations at 0048 11/27/24 LABS 11/26/24 05:11 11/26/24 05:11 TIME SPENT Time Spent in Discharge (Minutes): 35 Discharge Plan Discharge Patient Disposition: 20 Print Language: Ivorian Date/Time: 11/27/24 00:48"
== END 2024-11-27 00:48 | disposition expired | DRG 292 ==
LOC: MS2 13:47 → ED 13:47 → MS2 19:11 → ICU 11-26 16:19
PROVIDERS: ADMIT Nurse Practitioner Acute Care; ATTEND Nurse Practitioner Acute Care
DX: I50.9 Heart failure, unspecified; R00.0 Tachycardia, unspecified; I48.91 Unspecified atrial fibrillation; Z66 Do not resuscitate; E87.6 Hypokalemia; I50.43 Acute on chronic combined systolic (congestive) and diastolic (congestive) heart failure; F17.200 Nicotine dependence, unspecified, uncomplicated; Z79.899 Other long term (current) drug therapy; I49.3 Ventricular premature depolarization; J44.1 Chronic obstructive pulmonary disease with (acute) exacerbation; I08.3 Combined rheumatic disorders of mitral, aortic and tricuspid valves; Z51.5 Encounter for palliative care